=== PATIENT | male | born 1990 | race Caucasian/White ===

== ENCOUNTER 2017-03-26 17:05 | Inpatient (IN) | payer OTHER ==
[~2017-03-26] VITALS: Ht 193 cm; Wt 97.5 kg
[2017-03-26 17:07] VITALS: BP 136/89
--- NOTE | 2017-03-26 17:12 | NUR ---
Patient BIBA to bed 6.
--- NOTE | 2017-03-26 17:13 | NUR ---
26 /M BIBA FROM FIELD FOR NAUSEA, EXHAUSTION, DEHYDRATION. SKIN IS PINK/WARM/DRY; AAOX4 WITH EVEN AND STEADY GAIT; LUNGS CLEAR BL; HR EVEN AND REGULAR; PT DENIES ANY FEVER, CP, SOB, OR COUGH AT THIS TIME; PATIENT STATES PAIN OF 0/10 AT THIS TIME; VSS; PATIENT POSITIONED FOR COMFORT; HOB ELEVATED; BEDRAILS UP X2; BED DOWN. ER MD MADE AWARE OF PT STATUS.
--- NOTE | 2017-03-26 17:49 | NUR ---
ER MD DR HAWKINS EVALUATING PT AT BEDSIDE.
[2017-03-26] MEDS ORDERED: NACL 0.9% 1,000 ML IV ONE (18:00)
[2017-03-26 18:15] LABS: BASOPHILS # (AUTO) 0.2 K/uL (0.00-0.22); BASOPHILS % (AUTO) 1.9 % (0.0-2.0); EOSINOPHILS # (AUTO) 0.2 K/uL (0-0.4); EOSINOPHILS % (AUTO) 1.7 % (0.0-4.0); HEMATOCRIT 43.9 % (36-52); HEMOGLOBIN 14.8 g/dL (12.0-18.0); LYMPHOCYTES # (AUTO) 2.1 K/uL (2.0-11.5); LYMPHOCYTES % (AUTO) 19.8 % (20.5-51.1); MEAN CORPUSCULAR HEMOGLOBIN 30 pg (27-31); MEAN CORPUSCULAR HGB CONC 34 g/dL (33-37); MEAN CORPUSCULAR VOLUME 88 fL (80-94); MONOCYTES # (AUTO) 1.1 K/uL (0.8-1.0); MONOCYTES % (AUTO) 10.3 % (1.7-9.3); NEUTROPHILS # (AUTO) 6.9 K/uL (1.8-7.7); NEUTROPHILS % (AUTO) 66.3 % (42.2-75.2); PLATELET COUNT (AUTO) 262 K/uL (140-450); RED CELL DISTRIBUTION WIDTH 12.1 % (11.6-13.7); WHITE BLOOD COUNT (AUTO) 10.5 K/uL (4.8-10.8)
[2017-03-26 18:25] LABS: ANION GAP 13.5 (8-16); CALCIUM 8.9 mg/dL (8.5-10.1); CARBON DIOXIDE 23.1 mmol/L (21-32); CREATININE 1.1 mg/dL (0.7-1.3); POTASSIUM 3.6 mmol/L (3.5-5.1)
[2017-03-26] MEDS ORDERED: ONDANSETRON 4 MG/2 ML VIAL IVP ONE (18:25)
[2017-03-26 18:31] LABS: ALBUMIN 3.9 g/dL (3.4-5.0); TOTAL BILIRUBIN 1.1 mg/dL (0.0-1.0); TOTAL PROTEIN, SERUM 7.4 g/dL (6.4-8.2)
--- NOTE | 2017-03-26 19:15 | NUR ---
Pt found resting comfortably. VSS. No distress noted.
--- NOTE | 2017-03-26 19:20 | NUR ---
Pt report given to MARÍA. Transfer of care at this time.
--- NOTE | 2017-03-26 21:01 | NUR ---
SPOKE WITH PATIENT'S FATHER. FATHER STATES THE PATIENT HAS NO WHERE TO GO, NO I.D. AND NO MONEY. DR. SILVER SPOKE WITH THE FATHER AND WILL LOOK INTO OPTIONS ABOUT HOW TO PLACE THE PT INTO A HOTEL.
--- NOTE | 2017-03-26 21:37 | NUR ---
Pt resting comfortably. Dinner tray ordered for pt. Counter Tender Celine called. VSS. No distress noted.
--- NOTE | 2017-03-26 21:50 | NUR ---
Food tray provided to patient in bed 6. Pt eating, tolerating well.
--- NOTE | 2017-03-26 22:18 | NUR ---
Patient appears to be resting comfortably in bed. VSS. Pt continues to be calm and cooperative. No distress noted.
--- NOTE | 2017-03-26 22:28 | NUR ---
Patient will be admitted to care of Dr. Greer . Admited to TELE. Will go to room 107-A. Belongings list completed. Report to Manasa PANDYA.
--- NOTE | 2017-03-26 22:45 | NUR ---
Waiting for admitting orders to transfer patient to Tele.
[2017-03-26] MEDS ORDERED: NACL 0.9% 1,000 ML IV SCH (22:47)
[2017-03-26] MEDS ORDERED: HYDROcodone/APAP 7.5/325 MG 1 TAB PO PRN (22:50)
[2017-03-26] MEDS ORDERED: ACETAMINOPHEN 325 MG TAB PO PRN (22:50)
[2017-03-26] MEDS ORDERED: MORPHINE SULFATE 2 MG/ML SYR IVP PRN (22:50)
[2017-03-26] MEDS ORDERED: DOCUSATE SODIUM 100 MG GELCAP PO PRN (22:50)
[2017-03-26] MEDS ORDERED: ACETAMINOPHEN EXTRA STRENGTH 500 MG TAB ONE (23:03)
--- NOTE | 2017-03-26 23:05 | NUR ---
Clark younger in [facility] - 03/26/17 at 2319 by [facility] Pt transferred to Tele 107-A via .
--- NOTE | 2017-03-26 23:05 | NUR ---
Pt transferred to Tele 107-A via gurney on cardiac monitoring. All belongings sent with patient to room. VSS.
--- NOTE | 2017-03-26 23:45 | NUR ---
PT ADMITTED TO THE UNIT FROM ED VIA GURNEY. PATIENT ABLE TO AMBULATE TO BED, STEADY GAIT. PT IS AAOX4 ON ROOM AIR, NO SOB OR SIGN OF DISTRESS AT THIS TIME, IV TO LEFT AC PATENT AND INTACT. SKIN INTACT WITH GENERAL SCABS AND SCRATCHES, PT DENIES PAIN AT THIS TIME, PT CONNECTED TO TELE MONITOR, DISCUSSED PLAN OF CARE WITH PATIENT, PT VERBALIZED UNDERSTANDING, ORIENTED PT TO ROOM AND SURROUNDINGS, SAFETY MEASURES CHECKED, CALL LIGHT WITHIN REACH. WILL CONTINUE TO MONITOR.
[2017-03-27 00:10] VITALS: BP 113/56
[2017-03-27 01:18] LABS: INR 1.1 (0.8-1.2); PROTHROMBIN TIME 10.9 secs (10.8-13.4)
[2017-03-27] MEDS: NACL 0.9% 1,000 ML IV SCH ×2 (01:40→07:54)
[2017-03-27 01:59] LABS: APPEARANCE,URINE CLEAR (CLEAR); BILIRUBIN,URINE 1+ (NEGATIVE); BLOOD, URINE NEGATIVE (NEGATIVE); COLOR,URINE YELLOW (YELLOW); LEUKOCYTE ESTERASE ,URINE NEGATIVE (NEGATIVE); NITRITE, URINE NEGATIVE (NEGATIVE); PROTEIN,URINE NEGATIVE (NEGATIVE); UGLUCOSE NEGATIVE (NEGATIVE)
[2017-03-27 02:11] LABS: AMPHETAMINE, URINE NEGATIVE ng/ml (NEG <=1000); BARBITURATE, URINE NEGATIVE ng/ml (NEG <=200); BENZODIAZEPINE, URINE NEGATIVE ng/mL (NEG <=200); CANNABINOID, URINE NEGATIVE ng/mL (NEG <=50); COCAINE, URINE NEGATIVE ng/mL (NEG <=300); OPIATE, URINE NEGATIVE ng/mL (NEG <=2000); PHENCYCLIDINE SCREEN,URINE NEGATIVE ng/mL (NEG <=25)
--- NOTE | 2017-03-27 02:11 | NUR ---
PT SLEEPING, NO SIGN OF DISTRESS, CALL LIGHT WITHIN REACH. WILL CONTINUE TO MONITOR.
[2017-03-27 02:20] LABS: CHOL/HDL RATIO 4.9 (1-4.5); FREE T4 (FREE THYROXINE) 1.1 ng/dL (0.76-1.46); PHOSPHORUS 2.5 mg/dL (2.5-4.9)
[2017-03-27 02:21] LABS: THYROID STIMULATING HORMONE 0.22 uIU/mL (0.34-3.74)
[2017-03-27 03:16] LABS: BACTERIA,URINE None Seen /HPF (None Seen); ICTOTEST NEGATIVE (NEGATIVE); RBC,URINE 0-5 (RARE) /HPF (0-5); SQUAMOUS EPITHELIAL CELL,UR 0-3 (FEW) /LPF (0-3 (FEW)); WBC,URINE 0-5 (RARE) /HPF (0-5)
[2017-03-27 04:00] VITALS: BP 115/59
--- NOTE | 2017-03-27 04:20 | NUR ---
VITAL SIGNS STABLE, NO SOB OR SIGN OF DISTRESS AT THIS TIME, CALL LIGHT WITHIN REACH. WILL CONTINUE TO MONITOR.
--- NOTE | 2017-03-27 06:06 | NUR ---
SPOKE WITH PTS FATHER BIANKA PEREZ, FATHER WAS CONCERNED BECAUSE HE SAID PT DOES NOT HAVE ANYWHERE TO GO AND HAS NO PHONE OR MONEY. FATHER IS WORRIED PT WILL BE DISCHARGED TODAY AND HAVE NO WHERE TO GO AND HE WILL NOT HAVE ANY CONTACT WITH PT. FATHER ASKED IF HE COULD BE CALLED IN THE EVENT THE PT IS DISCHARGED, EXPLAINED CONSENT FROM THE PATIENT TO NOTIFY PARENT WILL BE DONE FIRST, FATHER UNDERSTOOD AND STATED HE WOULD CALL LATER IN THE DAY TO SPEAK TO THE SON BUT FATHER WOULD LIKE CASE MANAGEMENT INVOLVED SO THAT HIS SON WILL NOT END UP IN THE STREETS. WILL ENDORSE TO DAY RN ABOUT CURRENT SITUATION.
[2017-03-27 07:02] LABS: BASOPHILS # (AUTO) 0.2 K/uL (0.00-0.22); BASOPHILS % (AUTO) 3.1 % (0.0-2.0); EOSINOPHILS # (AUTO) 0.2 K/uL (0-0.4); EOSINOPHILS % (AUTO) 2.5 % (0.0-4.0); HEMATOCRIT 39.5 % (36-52); HEMOGLOBIN 13.5 g/dL (12.0-18.0); LYMPHOCYTES # (AUTO) 1.9 K/uL (2.0-11.5); LYMPHOCYTES % (AUTO) 27.3 % (20.5-51.1); MEAN CORPUSCULAR HEMOGLOBIN 30 pg (27-31); MEAN CORPUSCULAR HGB CONC 34 g/dL (33-37); MEAN CORPUSCULAR VOLUME 89 fL (80-94); MONOCYTES # (AUTO) 0.8 K/uL (0.8-1.0); MONOCYTES % (AUTO) 11.8 % (1.7-9.3); NEUTROPHILS # (AUTO) 3.7 K/uL (1.8-7.7); NEUTROPHILS % (AUTO) 55.3 % (42.2-75.2); PLATELET COUNT (AUTO) 237 K/uL (140-450); RED BLOOD CELL COUNT(AUTO) 4.46 MIL/uL (4.20-6.10); RED CELL DISTRIBUTION WIDTH 12.3 % (11.6-13.7); WHITE BLOOD COUNT (AUTO) 6.8 K/uL (4.8-10.8)
[2017-03-27 07:20] LABS: ANION GAP 11.6 (8-16); CALCIUM 8.3 mg/dL (8.5-10.1); CARBON DIOXIDE 25.1 mmol/L (21-32); POTASSIUM 3.7 mmol/L (3.5-5.1)
--- NOTE | 2017-03-27 07:20 | NUR ---
ENDORSED PATIENT TO DAY RN AT BEDSIDE, PATIENT IN STABLE CONDITION.
[2017-03-27 07:25] LABS: PHOSPHORUS 3.1 mg/dL (2.5-4.9)
--- NOTE | 2017-03-27 07:30 | NUR ---
RECEIVED REPORT FROM MUMTAZ ANGUIANO. PT IS ALERT AND ORIENTED X4. VERBALLY RESPONSIVE. NO C/O PAIN OR DISCOMFORT. BILATERAL PERRLA NOTED IN EYES. PLEASANT AND ABLE TO FOLLOW COMMANDS. ON RA SATURATING AT 95%. SB ON MONITOR. ABLE TO MOVE ALL EXTREMITIES. L FOREARM IV 20 GAUGE NOTED. PATENT AND INTACT. SKIN IS INTACT. SCABS NOTED ON LEGS. SAFETY PRECAUTION MAINTAINED. NO S/SX OF ACUTE DISTRESS NOTED. BED AT LOWEST SETTING. CALL LIGHT WITHIN REACH. WILL CONTINUE TO MONITOR FOR CHANGES.
--- NOTE | 2017-03-27 07:35 | NUR ---
PER PT, PT DOES NOT WISH FOR FAMILY TO BE INVOLVE IN CARE UNTIL HE HIMSELF FEELS READY TO SPEAK WITH FAMILY. CALL RECEIVED FROM FATHER. MESSAGE GIVEN TO FATHER.
[2017-03-27 08:00] VITALS: BP 113/73
--- NOTE | 2017-03-27 08:15 | NUR ---
PT ATE 75% OF BREAKFAST. TOLERATED WELL. WILL CONTINUE TO MONITOR.
--- NOTE | 2017-03-27 09:01 | NUR ---
PATIENT HAS BEEN SCREENED AND CATEGORIZED MODERATE NUTRITION RISK. PATIENT WILL BE SEEN WITHIN 3-5 DAYS OF ADMISSION. 03/29/17-03/31/[address]
--- NOTE | 2017-03-27 10:00 | NUR ---
PT SLEEPING IN ROOM. AWOKEN TO NAME. NO S/SX OF ACUTE DISTRESS NOTED. WILL CONTINUE TO MONITOR.
[2017-03-27 12:00] VITALS: BP 107/70
--- NOTE | 2017-03-27 12:00 | NUR ---
PT SLEEPING IN ROOM. AWOKEN TO NAME. NO S/SX OF ACUTE DISTRESS NOTED. WILL CONTINUE TO MONITOR.
--- NOTE | 2017-03-27 12:30 | NUR ---
PT CONSUME APPROXIMATELY 80% OF LUNCH
--- NOTE | 2017-03-27 12:40 | NUR ---
CM NOTE INITIAL REVIEW FAXED TO [facility] [employer] / FAX# [phone], ATTN: KELSIE Laughlin #[phone] [id number]
--- NOTE | 2017-03-27 14:00 | NUR ---
PT SLEEPING IN ROOM. AWOKEN TO NAME. NO S/SX OF ACUTE DISTRESS NOTED. WILL CONTINUE TO MONITOR.
[2017-03-27 16:00] VITALS: BP 113/74
--- NOTE | 2017-03-27 16:00 | NUR ---
PT SITTING ON BED. NO C/O PAIN OR DISCOMFORT. WILL CONTINUE TO MONITOR.
--- NOTE | 2017-03-27 19:32 | NUR ---
REPORT GIVEN TO MUMTAZ HOLLAND. PT IS STABLE.
--- NOTE | 2017-03-27 19:33 | NUR ---
RECEIVED REPORT FROM AM NURSE. PT RESTING IN BED, AOX4, ABLE TO VERBALIZE NEEDS. PT DENIES CHEST PAIN, DIZZINESS, SOB OR S/S OF ACUTE DISTRESS. DISCUSSED PLAN OF CARE WITH PT. PT STATED "OKAY." IV ACCESS ASYMPTOMATIC, PATENT AND INTACT. IVF INFUSING WELL. SAFETY MEASURES ENSURED. CALL LIGHT WITHIN REACH. WILL CONTINUE TO MONITOR.
[2017-03-27 20:00] VITALS: BP 133/78
--- NOTE | 2017-03-27 20:00 | NUR ---
CALLED PT'S FATHER BIANKA PEREZ WITH PT'S PHONE. PT TALKED TO PT TO DISCUSS CONDITION AND PLAN OF DISCHARGE. SPOKE TO PT'S FATHER WELL. DISCUSSED PT CONDITION AND PLAN OF CARE. PT'S FATHER EXPRESSED CONCERN THAT PT MIGHT NOT BE ABLE TO GO TO [facility] TO GET WIRED MONEY TRANSFER AND MAKE HIS WAY TO [facility] IN [place] SAFELY DUE TO UNFAMILIARITY IN THE AREA AND PT'S HX OF MENTAL ILLNESS IF HE WAS JUST PROVIDED WITH A BUS PASS. DISCUSSED THAT VENDOR MANAGEMENT SPECIALIST AND RETAIL PHARMACIST WILL BE HERE TOMORROW MORNING TO DISCUSS PLANS OF DISCHARGE. PT AND PT'S FATHER AGREED AT THIS TIME.
[2017-03-28] VITALS: BP 129/79
--- NOTE | 2017-03-28 | NUR ---
PT SLEEPING. UPON AROUSAL, PT YELLED VERY LOUDLY. PT STATED HE WAS HAVING A NIGHTMARE. VS TAKEN. NO S/S OF ACUTE DISTRESS. ALL NEEDS MET. IVF INFUSING WELL. SAFETY MEASURES ENSURED. CALL LIGHT WITHIN REACH. WILL CONTINUE TO MONITOR.
--- NOTE | 2017-03-28 03:45 | NUR ---
PT'S FATHER BIANKA PEREZ CALLED, WHO EXPRESSED THE SAME CONCERN THAT HE DOES NOT FEEL THAT THE PT WILL BE ABLE TO NAVIGATE SAFELY HOME TO [facility] AND TO [employer] BUSES IN [place] AND BACK HOME TO [place], [place]. PT'S FATHER STATED HE WILL FLY TO [place] AND HE WILL GET HERE BY 6PM. CALLED DR HERNANDEZ, PERFUME MAKER FOR DR JAIMES. DISCUSSED PT'S FATHER'S CONCERNS. PROVIDED PT'S FATHER'S NUMBER . DR HERNANDEZ CALLED PT'S FATHER.
--- NOTE | 2017-03-28 04:15 | NUR ---
PT CALLED USING CALL LIGHT. PT EXPRESSED CONCERN THAT HE WANTS TO STAY IN A MEDICAL HOSPITAL NEEDS WILL BE MONITORED. PT STATED "I FEEL SICK, I WANT TO STAY IN A MEDICAL HOSPITAL BUT NOT A PSYCH FACILITY BECAUSE I DON'T HAVE PSYCH ISSUES. BUT IF I HAVE TO BE, I GUESS I DON'T HAVE A CHOICE." WILL NOTIFY MD AND AM NURSE. PT STATED HE WAS HUNGRY, PROVIDED SNACKS AT THIS TIME. ALL NEEDS MET. SAFETY MEASURES ENSURED. CALL LIGHT WITHIN REACH. WILL CONTINUE TO MONITOR.
[2017-03-28 05:58] LABS: HEMATOCRIT 40.4 % (36-52); HEMOGLOBIN 13.4 g/dL (12.0-18.0); MEAN CORPUSCULAR HEMOGLOBIN 30 pg (27-31); MEAN CORPUSCULAR HGB CONC 33 g/dL (33-37); MEAN CORPUSCULAR VOLUME 90 fL (80-94); PLATELET COUNT (AUTO) 227 K/uL (140-450); RED BLOOD CELL COUNT(AUTO) 4.47 MIL/uL (4.20-6.10); RED CELL DISTRIBUTION WIDTH 12.4 % (11.6-13.7); WHITE BLOOD COUNT (AUTO) 5.7 K/uL (4.8-10.8)
[2017-03-28 06:28] LABS: CALCIUM 8.4 mg/dL (8.5-10.1); CARBON DIOXIDE 24.2 mmol/L (21-32); CREATININE 0.8 mg/dL (0.7-1.3); POTASSIUM 3.2 mmol/L (3.5-5.1)
[2017-03-28 06:57] LABS: BAND % (MANUAL) 5 % (0-8); EOSINOPHILS % (MANUAL) 4 % (0-4); LYMPHOCYTES % (MANUAL) 34 % (20-46); MONOCYTES % (MANUAL) 12 % (5-12); NEUTROPHILS % (MANUAL) 45 (43-65)
[2017-03-28] MEDS: NACL 0.9% 1,000 ML IV SCH (06:57)
--- NOTE | 2017-03-28 07:15 | NUR ---
ENDORSED PLAN OF CARE TO AM NURSE. CONDITION STABLE.
--- NOTE | 2017-03-28 07:20 | NUR ---
RECEIVED REPORT FROM MUMTAZ HOLLAND. PT IS SLEEPING IN BED BUT EASILY AWAKEN, PT IS A/OX4, AMBULATORY, IV IS ON THE LT FA, PATENT, INTACT, FLUSHING WELL, NO S/S OF RESPIRATORY DISTRESS OR DISCOMFORT NOTED, DISCUSSED PLAN OF CARE, PT VERBALIZED UNDERSTANDING, CALL LIGHT IS WITHIN REACH, WILL CONTINUE TO MONITOR.
[2017-03-28 08:00] VITALS: BP 110/71
[2017-03-28 08:36] LABS: T4 (THYROXINE) 8.2 ug/dL (4.5-12.0)
[2017-03-28] MEDS: QUEtiapine FUMARATE 25 MG TAB PO SCH ×2 (09:00→09:14)
--- NOTE | 2017-03-28 09:16 | NUR ---
PT REFUSED SEROQUEL, PT STATED "NO, I DO NOT NEED TO START TAKING THAT, I EXPLAINED I AM NOT BIPOLAR."
--- NOTE | 2017-03-28 10:40 | NUR ---
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
[2017-03-28 11:14] LABS: HEMOGLOBIN A1C 4.6 % (4.8-5.6)
--- NOTE | 2017-03-28 12:18 | NUR ---
FAXED CONCURRENT REVIEW TO [facility] [phone] PHONE KELSIE [phone] [id number]
--- NOTE | 2017-03-28 12:45 | NUR ---
PATIENT RESTING SLEEPING IN BED, CALL LIGHT WITHIN REACH.
[2017-03-28] MEDS ORDERED: POTASSIUM CHLORIDE 10 MEQ TABER PO SCH (13:30)
--- NOTE | 2017-03-28 14:37 | NUR ---
PATIENT RESTING IN BED, WATCHING TV, CALL LIGHT WITHIN REACH.
[2017-03-28 16:00] VITALS: BP 97/57
--- NOTE | 2017-03-28 16:40 | NUR ---
PATIENT IS SLEEPING IN BED, CALL LIGHT WITHIN REACH.
--- NOTE | 2017-03-28 18:11 | NUR ---
SUGEY BASSETT FORWARDED ME A MESSAGE LETTING ME KNOW THE PATIENT'S FATHER HAD CALLED STATING HE WOULD BE HERE AROUND 1930 TO MIXING MACHINE OPERATOR HIS SON.
--- NOTE | 2017-03-28 19:10 | NUR ---
ENDORSED PT TO MUMTAZ HOLLAND. FOR CONTINUITY OF CARE. PT STABLE AT THIS TIME.
--- NOTE | 2017-03-28 19:20 | NUR ---
RECEIVED REPORT FROM AM NURSE. PT RESTING IN BED, AOX4, ABLE TO VERBALIZE NEEDS. PT DENIES CHEST PAIN, DIZZINESS, SOB OR S/S OF ACUTE DISTRESS. DISCUSSED PLAN OF DISCHARGE WITH PT. PT EXPRESSED DISAPPOINTMENT BUT AGREED, STATING "I GUESS IF I HAVE TO, IT'S OUT OF MY CONTROL." IV ACCESS ASYMPTOMATIC, PATENT AND INTACT. IVF INFUSING WELL. SAFETY MEASURES ENSURED. CALL LIGHT WITHIN REACH. WILL CONTINUE TO MONITOR.
--- NOTE | 2017-03-28 20:00 | NUR ---
DISCHARGE INSTRUCTIONS GIVEN AND SIGNED BY PT. IV CATH REMOVED, CANNULA INTACT. PT TOLERATED WELL.
--- NOTE | 2017-03-28 20:15 | NUR ---
PT'S FATHER AT BEDSIDE TO SENIOR DIRECTOR INSIGHT PT. DISCUSSED PT PLAN OF CARE WITH PT'S FATHER. PT'S FATHER SIGNED HOMELESS WAIVER FORM, DISCERNING DISCHARGE TO PT'S FATHER'S HOME. ALL PT BELONGINGS GATHERED AND CHECKED.
--- NOTE | 2017-03-28 20:35 | NUR ---
PT AMBULATORY, WANTED TO WALK FOR DISCHARGE, ACCOMPANIED BY PT'S FATHER BIANKA PEREZ AT THIS TIME.
== END 2017-03-28 20:35 | disposition home or self-care (01) | DRG 73 ==
LOC: MED 17:05 → MTU 22:59
PROVIDERS: ADMIT Family Medicine; ATTEND Family Medicine
DX: G90.9 Disorder of the autonomic nervous system, unspecified (principal); G93.41 Metabolic encephalopathy; E86.0 Dehydration; F29 Unspecified psychosis not due to a substance or known physiological condition; E87.6 Hypokalemia; E02 Subclinical iodine-deficiency hypothyroidism; F41.9 Anxiety disorder, unspecified; R13.10 Dysphagia, unspecified; F32.9 Major depressive disorder, single episode, unspecified; Z72.89 Other problems related to lifestyle; Z98.52 Vasectomy status
CPT/HCPCS: 36415; 80048; 80053; 80305; 81001; 82150; 83036; 83690; 83735; 83880; 84100; 84436; 84439; 84443; 84479; 84484; 85025; 85610; 85730; 87081; 93005; 96361; 96374; 99285; J2405; J7030